=== PATIENT | female | born 1990 | race Caucasian/White ===

== ENCOUNTER 2016-12-23 18:54 | Emergency (ER) | payer OTHER ==
[~2016-12-23 18:54] MED LIST: ALBUTEROL17 GM INH; AMOXICILLIN PO; AMOXICILLIN875 MG PO; BROMPHED DM PO; CELEXA20 MG PO; CLEOCIN PO; E-MYCIN250 MG PO; FLONASE 0.05% N16 G1; LEVAQUIN750 MG PO; NO MEDICATIONS; PEN-VEE K PO; PSEUDOEPHEDRINE30 M3 PO; SUDAFED PO; TYLENOL #3 PO; VOLTAREN75 MG PO; YASMIN 28 TABLE1 TAB PO; ZITHROMAX PO; ZOFRAN ODT4 MG PO
== END 2016-12-23 19:52 | disposition home or self-care (01) ==
LOC: SED 18:54
DX: S39.012A Strain of muscle, fascia and tendon of lower back, initial encounter (principal); F17.210 Nicotine dependence, cigarettes, uncomplicated; X50.0XXA Overexertion from strenuous movement or load, initial encounter; Y92.009 Unspecified place in unspecified non-institutional (private) residence as the place of occurrence of the external cause
CPT/HCPCS: 99283